=== PATIENT | female | born 1975 | race Caucasian/White ===

== ENCOUNTER 2018-02-23 10:42 | Day surgery (SDC) | payer OTHER, SELFPAY ==
[2018-02-18 08:39] VITALS: BMI 36.3
[2018-02-23] VITALS (9 sets, daily range): BP systolic 126–163; BP diastolic 72–95; PULSE 72–98; RESP 8–16; TEMP 36.9–37.4; O2SAT 97–99; BMI 36.7
[2018-02-23] MEDS: LACTATED RINGERS 1,000 ML 42 ML IV (11:22)
[2018-02-23] MEDS: SCOPOLAMINE 1 PATCH TOP (11:23)
[2018-02-23] MEDS: fentaNYL 100 MCG/2 ML INJ 50 MCG IV (12:00)
[2018-02-23] MEDS: MIDAZOLAM 2 MG/2 ML VIAL 1 MG IV (12:00)
--- NOTE | 2018-02-23 12:00 | PM.PREOP ---
Pre-operative Note Interval Note Pre-op Check: Yes History & Physical Reviewed by Physician Changes: No
[2018-02-23] MEDS: CEFAZOLIN 2 GM/100 ML FROZ.PIGGY IV (12:23)
--- NOTE | 2018-02-23 12:26 | SUR.PREOP ---
Popliteal block by Dr Urbina [phone] with patient prone. Tolerated well. Done with nerve stimulation, no ultrasound.
--- NOTE | 2018-02-23 12:58 | SUR.OPER ---
Prone on padded OR bed, head in foam head support, gel chest rolls, gel pad under knees, pillow under lower legs, toes free of pressure, arms secured on padded arm boards at <90 degrees abduction. Safety belt at thigh. Taped non-operable lower leg.
[2018-02-23] MEDS: BUPIVACAINE 0.5% (PF) VIAL 30 ML INJ (14:11)
[2018-02-23] MEDS: TRAMADOL 50 MG TABLET PO (14:36)
[2018-02-23] MEDS: ONDANSETRON 4 MG/2 ML INJ IV (14:42)
--- NOTE | 2018-02-23 14:44 | PM.OP.1 ---
Operative Date/Time/Diagnoses Date of procedure: 02/23/18 Time of procedure: 14:44 Pre-op diagnosis: Right Achilles tendonitis and heel spur Post-op diagnosis: same Procedure & Clinicians Procedure: Right retrocalcaneal exostectomy with Achilles repair and anchoring Same procedure as scheduled: Yes Indications: Painful the heel and tendinitis. Conservative measures failed to alleviate her pain and she wished to have surgical intervention this time. We spoke with respect and complications as well as expected outcomes. Consent was signed, no contraindications to the procedure at this time. Surgeon: Jerilyn Brunner Click Yes if Unassisted: Yes Anesthesia Type: General and Peripheral nerve block Operative Notes Findings: Closure Type: primary Specimen(s): none sent Implants & Drains: Arthrex Speed Bridge, Vicryl, Nylon suture Estimated Blood Loss (mL): 20 Blood products transfused: none Tourniquet time (min): 59 Procedure in detail: After a lower extremity block was performed by Anesthesia in the preoperative holding area the patient was brought to the operating room. Next she was placed under general by the anesthesiologist and carefully positioned prone on operative table, well padded and appropriately aligned. The foot and ankle were prepped and draped in the usual aseptic manner. The tourniquet was inflated to the thigh. After a check of anesthesia incision was made on the posterior aspect of the right calcaneus at the insertion point of the Achilles to the heel. The incision was deepened through subcutaneous tissues being careful to identify and retract all vital neural and vascular structures. All bleeders were cauterized and ligated as necessary. The capsule surrounding the Achilles tendon was gently opened and reflected and the enlarged insertion point of the Achilles tendon was noted. The insertion was divided centrally and Achilles tendon was reflected laterally and medially. This exposed areas of the tendon that were significantly thickened as well as multiple areas of calcifications within the tendon. These bony prominences within tendon and calcifications were gently removed and some of the extraordinarily thickened scarred areas of the tendon distally were also reduced. An osteotome was used to chamfer away the posterior spurring of the calcaneus. This was then gently smoothed with a rasp. The area was irrigated with copious amounts of normal sterile saline. Following the technique of the Arthrex SpeedBridge, drill holes were placed proximally on the posterior aspect of the calcaneus medially and laterally. This was then tapped and each anchor was inserted. Once appropriately seated the FiberWire attached to the anchor was brought up through the Achilles tendon at the appropriate location. Next, distally on the calcaneus another set of 2 holes were drilled in the same manner and tapped. Following the speed bridge protocol, under appropriate tension threading each of the 2 sides of the more proximal anchors suture, this was then placed in each of the holes. Each of these 2 anchors were then seated appropriately and was under good tension. Excess fiber tape was trimmed. A free needle was used to take some of the included FiberWire suture on each side and reinforce the attachment. Care was taken to not make this a proud knot. 3-0 Vicryl was used to reinforce and repair the remainder of the Achilles tendon and range of motion was available and strong. It appeared to have more motion at this time at the ankle without significant gastrocnemius tension so I decided to not perform the recession. The tourniquet was deflated. A prompt hyperemic response was seen to the foot and ankle. Tendon capsule was then repaired and subcutaneous closure was performed with Vicryl. Skin was closed with nylon and she was placed in a sterile lightly compressive dressing. She was then also placed in her postoperative boot. She was transferred to the PACU with vital signs stable and vascular status intact. Complications: none Condition: stable Disposition: PACU Plan for aftercare: Following a period of postoperative monitoring the patient be discharged home on written and oral postoperative instructions including keeping the dressing dry and intact, avoiding significant ambulation to the foot. Icing and elevating the foot when seated at home. DVT prevention techniques have been reviewed. She is generally going to have a dressing change at the 1st postoperative visit and then about 3 weeks will have her sutures removed and begin a transition to weight-bearing of using her crutches and start physical therapy.
[2018-02-23] MEDS: ONDANSETRON 4 MG ODT PO (15:13)
--- NOTE | 2018-02-23 15:14 | SUR.PHASEI ---
IV DCD IN LEFT FOREARM DUE TO INFILTRATE. SWOLLEN AND WARM CHARGE NURSE AND DR. TOVAR NOTIFIED WARM COMPRESS APPLIED.
--- NOTE | 2018-02-23 15:18 | SUR.PHASEI ---
TOTAL IV FLUID PER ANESTHESIA IS 1200ML LR
== END 2018-02-23 15:45 | disposition home or self-care (01) ==
PROVIDERS: PCP Family Medicine; Visit Provider Podiatrist
PROC: (CPT 27654; principal; 2018-02-23 11:45)
PROC: (CPT 27691; 2018-02-23 11:45)
DX: M76.61 Achilles tendinitis, right leg (principal); M77.31 Calcaneal spur, right foot; M77.41 Metatarsalgia, right foot; E66.9 Obesity, unspecified; I10 Essential (primary) hypertension; F33.41 Major depressive disorder, recurrent, in partial remission; R51 Headache
CPT/HCPCS: 27654; 28119; 64450; J0330; J0690; J1100; J2250; J2405; J2704; J3010

== ENCOUNTER 2022-12-10 09:16 | Day surgery (SDC) | payer OTHER, SELFPAY ==
[2022-11-25 09:13] VITALS: BMI 37.7
[2022-12-10] VITALS (7 sets, daily range): BP systolic 122–175; BP diastolic 50–92; PULSE 65–90; RESP 10–18; TEMP 36.2–36.4; O2SAT 92–99; BMI 37.7
--- NOTE | 2022-12-10 | PATH_ITS ---
[facility] Accession Number: [id number] No. of containers..01 Tissue . 01 Material submitted: . endometrium - ENDOMETRIAL CURETTINGS . 01 Diagnosis: Endometrium, Curettage: Mixed phase endometrium with focal changes suggestive of a polyp. Negative for neoplasia. MRV 12/22/2022 1722 Local . 01 Electronically signed: . Adia Lopez MD, Pathologist NPI- [id number] . 01 Gross description: . ENDOMETRIAL CURETTINGS: Received in formalin are minute fragments of mucoid and hemorrhagic material measuring 2.3 x 1.0 x 0.3 cm in aggregate. Submitted in toto in 1 cassette. /AAY 12/15/2022 0723 Local . 01 Pathologist provided ICD-10: N92.0 . 01 CPT . 921498 Specimen Comment: A courtesy copy of this report has been sent to [phone] Performed at: 01 [facility] [address] [place] [address] [address] [facility], [place], [place] [id number] MD Roberto Bassett MD Phone: [phone]
[2022-12-10] MEDS: LACTATED RINGERS 1,000 ML 100 ML IV (09:36)
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
--- NOTE | 2022-12-10 10:51 | SUR.OPER ---
Lithotomy on padded OR bed, head on pillow, arms secured on padded arm boards at <90 degrees abduction. Legs secured in padded yellow fins stirrups.
--- NOTE | 2022-12-10 11:09 | PM.GYNOP.1 ---
Operative Date/Time/Diagnoses Date of procedure: 12/10/22 Time of procedure: 11:09 Pre-op diagnosis: Menorrhagia Post-op diagnosis: same Procedure & Clinicians Procedure: Procedures Operation Date: 12/10/22 10:15 Actual Procedure Side Surgeon p D&C Hysteroscopy w/ Novasure Ablation, ENDOMETRIAL CURETTINGS Zaria Burton MD Indications: Menorrhagia Surgeon: Zaria Burton Anesthesia Type: General (LMA) Operative Notes Findings: 7 week size anteverted uterus Both fallopian tube ostia observed Length equal 5.5 cm, width equals 4.5 cm, power equals 136 w, time 1 minutes and 10 seconds Closure Type: not applicable Specimen(s): endometrial curettings Estimated blood loss (mL): 10 Blood products transfused: none Procedure in detail: After informed consent was obtained, the patient was taken to the operating room where she was placed in the dorsal supine position. After adequate LMA general anesthesia was achieved, she was placed in the dorsal lithotomy position, and prepped and draped in the usual sterile fashion. A time-out was performed. A bivalve speculum was placed into the vagina and the anterior lip of the cervix was grasped with a single-tooth tenaculum. The cervical os was sequentially dilated until the hysteroscope could pass easily into the endometrial cavity. Initial inspection revealed both fallopian tube ostia. No polyps or fibroids. The hysteroscope was removed. Sharp curettage was performed yielding a large amount of endometrial curettings. The uterus was measured from the internal os of the fundus and measured 5.5 cm. This was set on the catheter, and the NovaSure generator. The NovaSure catheter passed easily into the endometrial cavity and was opened. The width was 4.5 cm. This was also set on the generator. This indicated a power of 136 w. The cervix was capped, the cavity assessment was performed and passed. The cycle was initiated and lasted 1 minute and 10 seconds. The NovaSure catheter was closed. The cervix was uncapped. The catheter was removed from the uterus. The single-tooth tenaculum was removed from the anterior lip of the cervix. The bivalve speculum was removed from the vagina. Sponge, lap, and instrument counts were correct x2. The patient tolerated the procedure well, and was taken to PACU in stable condition. Complications: none Post-operative Condition: stable Disposition: PACU Plan for aftercare: Home after recovery
--- NOTE | 2022-12-10 11:19 | PM.PREOP ---
Pre-operative Note Interval Note History & Physical reviewed/Exam performed by Physician: Yes Changes to H&P: No H&P completed within 30 days and has changed as indicated here:: 12/10/22
== END 2022-12-10 11:53 | disposition home or self-care (01) ==
PROVIDERS: PCP Internal Medicine; Referring Provider Obstetrics & Gynecology; Visit Provider Obstetrics & Gynecology
PROC: 0U5B8ZZ Destruction of Endometrium, Via Natural or Artificial Opening Endoscopic (ICD-10-PCS; CPT 58563; principal; 2022-12-10 10:15)
DX: N92.0 Excessive and frequent menstruation with regular cycle (principal)
CPT/HCPCS: 58563; J1100; J1885; J2405; J2704; J3010

== ENCOUNTER → 2023-06-21 07:45 | Outpatient (CLI) | payer OTHER, SELFPAY ==
--- NOTE | 2023-06-21 07:48 | DI.ECHO.S_ITS ---
[facility] +---------+ Hospital +---------+ : : [address] [place] : : : : [id number] : : : : Phone: [phone]+ Echocardiogram Report + + :Name: SHERRON VIRK Study Date: 06/21/2023 Height: 68 in : :[facility] ReadingLocation: Weight: 250 lb : : Gender: Female BSA: 2.2 m2 : :: 1975 Age: 47 yrs BP: 138/84 mmHg: :Reason For Study: PALPITATIONS : :Ordering Physician: KAYLA, : :NERIS Performed By: Caesar Zelaya : :Referring: NERIS GARZA : + + Interpretation Summary Normal left ventricle size with ejection fraction 60-65%. Borderline right ventricular enlargement. The right ventricular systolic function is normal. No valvular abnormality. The ascending aorta is mildly enlarged. Procedure: A two-dimensional transthoracic echocardiogram with color flow and Doppler was performed. The study quality was technically adequate. There is no prior echocardiogram noted for this patient. The patient was in sinus rhythm with heart rates between 62-74 bpm during the exam. Left Ventricle: The left ventricle is normal in size and wall thickness. The ejection fraction is estimated to be 60-65%. There are no focal wall motion abnormalities. Diastolic parameters suggest probable normal left ventricular diastolic function and normal filling pressures. Right Ventricle: Borderline right ventricular enlargement. The right ventricular systolic function is normal. Atria: The left atrial size is normal. Right atrial size is normal. Mitral Valve: The mitral valve is normal in structure and function. There is no mitral valve stenosis. There is trace mitral regurgitation. Aortic Valve: The aortic valve is grossly normal. There is no aortic valve stenosis. No aortic regurgitation is present. Tricuspid Valve: There has been no significant change since the previous study. There is no tricuspid stenosis. There is trace tricuspid regurgitation. The right ventricular systolic pressure is estimated to be at least 28 mmHg based on an estimated right atrial pressure of 3 mm Hg. Pulmonic Valve: The pulmonic valve is not well visualized. There is no pulmonic valvular stenosis. There is no pulmonic valvular regurgitation. Great Vessels: The aortic root is normal size. The ascending aorta is mildly enlarged. The IVC is of normal diameter and collapses greater than 50% with a sniff. This suggests a low right atrial pressure of 3 mm Hg. Pericardium/ Pleura There is no pericardial effusion. There is no pleural effusion. MMode/2D Measurements & Calculations LVIDd: 5.4 cm LVOT diam: 2.2 cm LVIDs: 3.3 cm Ao root diam: 3.2 cm FS: 38.1 % asc Aorta Diam: 3.7 cm IVSd: 0.99 cm Ao Arch Diam (Prox Trans): 2.8 cm LVPWd: 0.92 cm LV javed. diameter/BSA (cm/m^2): 2.4 LV sys. diameter/BSA (cm/m^2): 1.5 LA A2 area: 19.2 cm2 RA long axis: 4.3 cm LA A4 area: 19.8 cm2 RA area: 17.7 cm2 LA length (vol): 5.3 cm RA vol: 62.3 ml LA vol: 61.3 ml RA : 27.7 ml/m2 LA vol index: 27.3 ml/m2 IVC diam: 1.7 cm RVD1 (basal): 4.3 cm RVD2 (mid): 3.5 cm TAPSE: 2.5 cm Doppler Measurements & Calculations Ao V2 max: 149.9 cm/sec LVOT Max Raji: 113.8 cm/sec Ao V2 mean: 106.9 cm/sec LV V1 max P.2 mmHg Ao max P.0 mmHg LV V1 VTI: 27.6 cm Ao mean P.0 mmHg JENNIFER(I,D): 3.3 cm2 Ao V2 VTI: 32.1 cm JENNIFER(V,D): 2.9 cm2 sev ratio: 0.86 JENNIFER indexed to BSA (cm^2/m^2): 1.5 MV E max raji: 85.7 cm/sec TR max raji: 253.7 cm/sec MV A max raji: 71.3 cm/sec TR max P.8 mmHg MV E/A: 1.2 PA V2 max: 123.2 cm/sec Med Peak E' Raji: 8.7 cm/sec PA V2 mean: 86.6 cm/sec E/E' med: 9.8 PA mean P.3 mmHg Lat Peak E' Raji: 10.9 cm/sec PA pr(Accel): 49.9 mmHg E/E' lat: 7.9 E/e' average: 8.9 MV dec time: 0.20 sec SV(LVOT): 106.3 ml Electronically signed by: Jake Quinonez on Reading Physician:06/21/2023 09:15 AM
== END ==
LOC: ECHO 07:46
PROVIDERS: PCP Internal Medicine; Referring Provider Nurse Practitioner; Visit Provider Nurse Practitioner
DX: I77.89 Other specified disorders of arteries and arterioles (principal); R00.2 Palpitations
CPT/HCPCS: 93306

== ENCOUNTER 2024-08-24 09:02 | Day surgery (SDC) | payer OTHER, SELFPAY ==
[2024-08-03 09:14] VITALS: BMI 41.8
[2024-08-03 10:06] VITALS: BMI 41.8
--- NOTE | 2024-08-24 | PATH_ITS ---
[facility] Accession Number: [id number] No. of containers..01 Tissue . 01 Material submitted: . colon - COLON, SIGMOID POLYP . 01 Diagnosis: SIGMOID COLON: Ulcerated inflammatory polyp. Negative for dysplasia and malignancy. MRV 08/29/2024 1622 Local . 01 Electronically signed: . Deirdre Ellis DO, Pathologist NPI- [id number] . 01 Gross description: . COLON, SIGMOID POLYP: Received in formalin are 2 fragment(s) of brown, soft tissue measuring 0.7 x 0.3 x 0.3 cm to 0.8 x 0.7 x 0.7 cm submitted entirely in 1 cassette(s) /LIAM 08/24/2024 2351 Local . 01 Pathologist provided ICD-10: Z12.11 . 01 CPT . 071677 Specimen Comment: A courtesy copy of this report has been sent to [phone] Performed at: [address] [facility] [address], [place], [place] [id number] MD Roberto Bassett MD Phone: [phone]
[2024-08-24] MEDS: LACTATED RINGERS 1,000 ML 42 ML IV (09:39)
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
[2024-08-24 09:55] LABS: Blood Urea Nitrogen 13 mg/dL (7-17); Carbon Dioxide 24 mmol/L (22-32); Chloride 105 mmol/L (98-107); Estimated Glomerular Filt Rate > 60 mL/min (>60); Glucose 101 mg/dL (70-99); HEMOLYSIS 19 (0-50); Potassium 3.9 mmol/L (3.4-5.1); Sodium 139 mmol/L (137-145)
[2024-08-24 10:28] VITALS: BP 101/65; PULSE 72; RESP 18; TEMP 37.1; O2SAT 100
--- NOTE | 2024-08-24 10:30 | PM.OP.COLON ---
Operative Date/Time/Diagnoses Date of procedure: 08/24/24 Time of procedure: 10:30 Pre-op diagnosis: Colon cancer screening Post-op diagnosis: same Procedure & Clinicians Study performed: Colonoscopy Same procedure as scheduled: Yes Surgeon: Beto Alan Procedure Notes Procedure in detail: Surgeon: Beto Alan MD Anesthesia: Andreina Murray MD Procedure: The patient was brought to the endoscopy suite, placed in left lateral decubitus position. The patient was connected to monitoring devices. A time-out was performed. Sedation was administered. Once the patient was adequately sedated, a digital rectal exam was performed and was normal. The scope was then inserted and advanced to the cecum where the appendiceal orifice was identified and photographed. The scope was then slowly withdrawn over greater than 6 minutes. The mucosa was thoroughly inspected. There was a 1 cm polyp in the sigmoid colon removed with a cold snare. The scope was retroflexed in the rectum. No other abnormalities were found. The scope was straightened and removed. The patient was awakened and brought to recovery. Scope withdrawal time: 8 minutes Sedation time: 15 minutes EBL: 5 mL Findings: 1 cm sigmoid colon polyp Post-procedure Disposition: PACU
[2024-08-24 10:33] VITALS: BP 110/72; PULSE 69; RESP 10; O2SAT 100
[2024-08-24 10:35] VITALS: BP 119/62; PULSE 86; RESP 16; TEMP 36.9; O2SAT 100
== END 2024-08-24 10:55 | disposition home or self-care (01) ==
PROVIDERS: Anesthesiology; PCP Family Medicine; Referring Provider Surgery; Visit Provider Surgery
PROC: 0DJD8ZZ Inspection of Lower Intestinal Tract, Via Natural or Artificial Opening Endoscopic (ICD-10-PCS; CPT 45378; principal; 2024-08-24 10:15)
DX: Z12.11 Encounter for screening for malignant neoplasm of colon (principal); K51.418 Inflammatory polyps of colon with other complication
CPT/HCPCS: 45385; 80048; J2704